=== PATIENT | female | born 1975 | race Caucasian/White ===

== ENCOUNTER 2016-08-15 07:44 | Emergency (ER) | payer SELFPAY ==
[~2016-08-15] VITALS: Ht 160 cm; Wt 60.0 kg
[2016-08-15] MEDS ORDERED: DIAZ2TAB PO (07:48)
[2016-08-15 08:10] VITALS: BP 117/71
== END 2016-08-15 09:38 | disposition left against medical advice (07) ==
LOC: ER 07:56
DX: R42 Dizziness and giddiness (principal); F41.9 Anxiety disorder, unspecified; F11.10 Opioid abuse, uncomplicated; F19.10 Other psychoactive substance abuse, uncomplicated

== ENCOUNTER 2016-10-02 18:00 | Emergency (ER) | payer SELFPAY ==
[~2016-10-02] VITALS: Ht 157.5 cm; Wt 59.0 kg
[~2016-10-02 18:00] MED LIST: DIAZ2TAB PO
[2016-10-02] MEDS ORDERED: TRAMADOL 50MG TABLET PO ONE (19:30)
[2016-10-02 20:41] VITALS: BP 134/83
== END 2016-10-02 21:34 | disposition home or self-care (01) ==
LOC: ER 21:03
DX: L03.317 Cellulitis of buttock (principal); F41.9 Anxiety disorder, unspecified; F11.10 Opioid abuse, uncomplicated; Z98.51 Tubal ligation status
CPT/HCPCS: 99283